=== PATIENT | female | born 1990 | race African-American/Black ===

== ENCOUNTER 2018-03-29 21:47 | Emergency (ER) | payer OTHER ==
[~2018-03-29] VITALS: Ht 162.6 cm; Wt 68.0 kg
[~2018-03-29 21:47] MED LIST: HYDROXYZINE50 MG PO; MINASTRIN 24 FE1 KIT PO; TRIAMCINOL0.1 %/453 TOP
[2018-03-30 00:46] VITALS: BP 118/85
--- NOTE | 2018-03-30 01:31 | ED HEAD/FACIAL INJ COMPLAINT ---
History of Present Illness General Chief Complaint: General Adult Stated Complaint: "HIT HEAD" Source: patient Exam Limitations: no limitations Vital Signs & Intake/Output Vital Signs & Intake/Output Vital Signs Date Time Temp Pulse Resp B/P B/P Pulse O2 O2 Flow FiO2 Mean Ox Delivery Rate 03/30 0046 98.7 88 18 118/85 99 Room Air 03/29 2206 98.7 81 18 129/87 99 Room Air ED Intake and Output 03/30 0000 03/29 1200 Intake Total Output Total Balance Patient 150 lb Weight Weight Reported by Patient Measurement Method Allergies Coded Allergies: MDX - PCN (penicillin) (PCN (PENICILLIN)) (HIVES 02/23/15) Reconcile Medications Hydroxyzine Hydrochloride (Hydroxyzine) 50 MG TAB 1 TAB PO Q6-8 PRN ITCH/RASH NORETHINDRONE-E.ESTRADIOL-IRON (Minastrin 24 Fe Chewable Tab) 1 MG-20 MCG (24)/ 75 MG (4) TAB.CHEW 1 TAB PO DAILY CONTROL (Reported) Triamcinolone Acetonide (Triamcinolone 0.1% Cream 453 Gm) 0.5 % CREAM..G. 1 ADAM TOP Q8H PRN ITCH Triage Note: PT TO ED C/O PAIN IN BACK OF HEAD AND DOWN LEFT SIDE OF NECK S/P INJURY DURING ROLLOER COASTER RIDE 11 HRS AGO. DENIES N/V. DID HAVE A PERIOD OF DIZZINESS AND WEAKNESS 9 HRS AGO. NOW HAS A HEADACHE. Triage Nurses Notes Reviewed? yes : No Patient currently breastfeeds: No HPI: Patient presents for evaluation of a possible head injury that occurred at about 11:00 this [place] Patient states she hit the back of her head on a roller coaster ride. She denies loss of consciousness but does admit to having a gradual onset of a headache. She states she kept going on the ride began feeling increasingly dizzy. In addition she felt somewhat sleepy during the day and slept on the ride back from the amusement park. Patient is also experiencing some upper neck stiffness. She denies any associated visual changes or vomiting. Past History Travel History Traveled to [place] past 21 day No Medical History Any Pertinent Medical History? see below for history EENT: NONE Cardiovascular: NONE Respiratory: NONE Gastrointestinal: NONE Hepatic: NONE Renal: NONE Musculoskeletal: NONE Psychiatric: NONE Endocrine: NONE Surgical History Surgical History: N Psychosocial History What is your primary language Bhutanese Tobacco Use: Never used ETOH Use: denies use Illicit Drug Use: denies illicit drug use Family History Hx Contributory? No Review of Systems Review of Systems Constitutional: Reports: no symptoms. EENTM: Reports: no symptoms. Respiratory: Reports: no symptoms. Cardiovascular: Reports: no symptoms. GI: Reports: no symptoms. Genitourinary: Reports: no symptoms. Musculoskeletal: Reports: see HPI. Skin: Reports: no symptoms. Neurological/Psychological: Reports: no symptoms. Hematologic/Endocrine: Reports: no symptoms. Immunologic/Allergic: Reports: no symptoms. All Other Systems: Reviewed and Negative Physical Exam Physical Exam General Appearance: SEE BELOW Cranial Nerves: SEE BELOW Comments: Gen.: Well-nourished, well-developed, no acute respiratory distress. Head: Normocephalic, atraumatic. Nontender. Eyes: Normal inspection bilaterally, PERRLA, EOMI Ears: Normal inspection bilaterally, no yang sign Nose: Normal inspection Throat/mouth : Moist mucosa Neck: Supple, full range of motion, no goiter, nontender Lungs: Quiet respirations Back: Normal range of motion Extremities: Normal range of motion grossly, no cyanosis clubbing or edema of the upper extremities Neurologic: Cranial nerves 2 through 12 intact, speech is clear, gait is stable Skin: warm and dry Psychiatric: Calm, cooperative, no apparent delusions or hallucinations Progress Differential Diagnosis: c-spine injury, facial fracture, skull fracture Plan of Care: Orders Procedure Date/time Status URINE 03/30 0001 Complete Laboratory Tests 03/30/18 0009: Urine Test NEGATIVE Comments: Patient recalled 3 objects with mild prompting. Patient spelled world backwards correctly. Patient able to count backwards from 100 by seven. Alexa declined imaging in the emergency department because of right availability. Possibility of mild concussion discussed. Departure Departure Disposition: HOME OR SELF CARE Condition: Stable Clinical Impression Primary Impression: Minor head trauma Secondary Impressions: Neck strain Qualifiers: Encounter type: initial encounter Qualified Code: S16.1XXA - Strain of muscle, fascia and tendon at neck level, initial encounter Referrals: Unknown (PCP/Family) Additional Instructions: [id number] ibuprofen or Tylenol as needed for headache pain or neck pain. Ice to any areas of swelling. Follow-up with your primary care physician on Saturday if not improving. Return to the emergency department if any concerns, sudden worsening or if he wished to have the imaging studies done as discussed. Thank you for choosing the [facility] Emergency Department for your care. It was a pleasure to serve you today. Elmer Iglesias M.D. [facility] Departure Forms: Customer Survey General Discharge Information
== END 2018-03-30 01:39 ==
LOC: ERH 21:47
DX: S09.90XA Unspecified injury of head, initial encounter (principal); W22.8XXA Striking against or struck by other objects, initial encounter; Y93.I1 Activity, roller coaster riding; Y92.831 Amusement park as the place of occurrence of the external cause
CPT/HCPCS: 81025

== ENCOUNTER 2018-04-08 18:08 | Emergency (ER) | payer OTHER ==
--- NOTE | 2018-04-08 20:01 | CT SCAN REPORT ---
EXAMINATION: CT HEAD WITHOUT CONTRAST CLINICAL INFORMATION: Head strike COMPARISON: 01/21/[address] TECHNIQUE: Contiguous axial imaging was performed from the skull base to vertex without intravenous administration of contrast. DLP: 689 mGy-cm FINDINGS: There is no evidence of acute intracranial hemorrhage or territorial infarction. No abnormal mass effect or midline shift is seen. Martinez to white matter differentiation is well preserved. No extra-axial fluid collections are identified. The ventricles are normal in size. There is no abnormal attenuation within the brain parenchyma. The osseous structures and soft tissues are normal. The mastoid air cells and visualized portions of the paranasal sinuses are well aerated. IMPRESSION: No acute intracranial pathology.
[2018-04-08] MEDS ORDERED: NAPROSYN500 M1 PO (21:41)
--- NOTE | 2018-04-08 21:42 | ED GENERAL ADULT ---
History of Present Illness General Chief Complaint: Facial or Head Injury Stated Complaint: HEAD INJURY 2 WKS AGO, REQUESTING CT SCAN Source: patient Exam Limitations: no limitations Vital Signs & Intake/Output Vital Signs & Intake/Output Vital Signs Date Time Temp Pulse Resp B/P B/P Pulse O2 O2 Flow FiO2 Mean Ox Delivery Rate 04/08 2152 97.8 82 18 138/81 99 Room Air 04/08 2023 97 Room Air 04/08 1812 97.2 80 16 141/97 97 Room Air Allergies Coded Allergies: MDX - PCN (penicillin) (PCN (PENICILLIN)) (HIVES 02/23/15) Reconcile Medications Hydroxyzine Hydrochloride (Hydroxyzine) 50 MG TAB 1 TAB PO Q6-8 PRN ITCH/RASH Naproxen (Naprosyn) 500 MG TABLET 1 TAB PO BID PRN headache/pain NORETHINDRONE-E.ESTRADIOL-IRON (Minastrin 24 Fe Chewable Tab) 1 MG-20 MCG (24)/ 75 MG (4) TAB.CHEW 1 TAB PO DAILY CONTROL (Reported) Triamcinolone Acetonide (Triamcinolone 0.1% Cream 453 Gm) 0.5 % CREAM..G. 1 ADAM TOP Q8H PRN ITCH Triage Note: PT TO ED REQUESTING HEAD/NECK CT SCAN AFTER SUSTAINING INJURY WHILE RIDING A ROLLER COASTER 2 WEEKS AGO AT [employer]. STATES WHEN SHE WAS ASCENDING ROLLER COAST, HER HEAD SNAPPED BACK AND HIT A HARD PLASTIC PIECE. REPORTS CONTINUED POSTERIOR HEAD PAIN/PRESSURE AND FATIGUE. Triage Nurses Notes Reviewed? yes Onset: Gradual Duration: day(s): Timing: constant : No Patient currently breastfeeds: No HPI: 27-year-old otherwise healthy female presenting with headaches and lightheadedness 1.5 weeks. Patient reports that she was on a roller coaster and during the ride the back of her head firmly struck a plastic piece on the back of her C. Denies LOC. Is not on any anticoagulation. She had gradual onset of posterior headaches after. Denies any associated nausea, vomiting, visual changes. She was seen and evaluated in the emergency department after the incident, was offered CT head but declined at that time. She has had persistent headaches and lightheadedness since, and returns to the emergency department as she would like to obtain a CT of her head at this time. (Gemma Ireland) Past History Travel History Traveled to [place] past 21 day No Medical History Any Pertinent Medical History? none EENT: NONE Cardiovascular: NONE Respiratory: NONE Gastrointestinal: NONE Hepatic: NONE Renal: NONE Musculoskeletal: NONE Psychiatric: NONE Endocrine: NONE Surgical History Surgical History: N Psychosocial History What is your primary language Ugandan Tobacco Use: Never used Family History Hx Contributory? No (Gemma Ireland) Review of Systems Review of Systems Constitutional: Reports: no symptoms. EENTM: Reports: no symptoms. Respiratory: Reports: no symptoms. Cardiovascular: Reports: no symptoms. GI: Reports: no symptoms. Genitourinary: Reports: no symptoms. Musculoskeletal: Reports: no symptoms. Skin: Reports: no symptoms. Neurological/Psychological: Reports: see HPI. Hematologic/Endocrine: Reports: no symptoms. Immunologic/Allergic: Reports: no symptoms. All Other Systems: Reviewed and Negative (Gemma Ireland) Physical Exam Physical Exam General Appearance: well developed/nourished, no apparent distress, alert, awake , comfortable Comments: Gen.: Well-nourished, well-developed, no acute distress. Head: Normocephalic, atraumatic, nontender Eyes: Normal inspection bilaterally Ears: Normal inspection bilaterally Nose: Normal inspection Neck: Normal inspection, no midline tenderness to palpation, unrestricted C- spine range of motion Lungs: clear to auscultation bilaterally, normnal breath sounds Heart: regular rate and rhythm Abdomen: soft and non-tender Extremities: Normal inspection Neurologic: alert and oriented x3, steady gait, cranial nerves II through XII intact, sensation intact, motor strength 5 out of 5, reflexes 2+, cerebellar function intact Skin: warm and dry Psychiatric: Normal mood and affect, no apparent delusions or hallucinations, behavior appropriate Core Measures ACS in differential dx? No CVA/TIA Diagnosis: No Sepsis Present: No Sepsis Focused Exam Completed? No (Gemma Ireland) Progress Differential Diagnoses I considered the following diagnoses in my evaluation of the patient: [ Concussion versus ICH versus cranial fracture] Plan of Care: Orders Procedure Date/time Status URINE 04/08 1824 Complete Laboratory Tests 04/08/18 1835: Urine Test NEGATIVE CT head unremarkable. Patient reports complete resolution of her symptoms after IV fluids, Reglan, and Toradol. Likely with concussion secondary to her previous head strike. Will give Rx naproxen. Counseled on supportive care. She will follow-up with her PMD for reevaluation. Given neurology follow-up in the event that her headache/concussion does not improve. Given strict return precautions. Initial ED EKG: none (Gemma Ireland) Departure Departure Disposition: HOME OR SELF CARE Condition: Stable Clinical Impression Primary Impression: Headache Secondary Impressions: Closed head injury Referrals: Delbert DODD,Delbert (PCP/Family) Stephani Wylie MD Additional Instructions: Use naproxen as needed for headaches. Maintain adequate fluid intake to help alleviate lightheadedness. Follow-up with your primary care doctor for further evaluation. Return to the emergency department for any new or worsening symptoms. Departure Forms: Customer Survey General Discharge Information Prescriptions: Current Visit Scripts Naproxen (Naprosyn) 1 TAB PO BID PRN headache/pain #60 TAB (Gemma Ireland) PA/TANK TRUCK ENGINE MECHANIC Co-Sign Statement Statement: ED Attending supervision documentation- [] I saw and evaluated the patient. I have also reviewed all the pertinent lab results and diagnostic results. I agree with the findings and the plan of care as documented in the PA's/TANK TRUCK ENGINE MECHANIC's documentation. [x] I have reviewed the ED Record and agree with the PA's/TANK TRUCK ENGINE MECHANIC's documentation. [] Additions or exceptions (if any) to the PAs/TANK TRUCK ENGINE MECHANIC's note and plan are summarized below: [] (Elmer Mcnair DO) Critical Care Note Critical Care Note Critical Care Time: non-applicable (Gemma Ireland)
[2018-04-08 21:52] VITALS: BP 138/81
== END 2018-04-08 21:52 ==
LOC: ERH 18:08
DX: S09.90XA Unspecified injury of head, initial encounter (principal); W22.8XXA Striking against or struck by other objects, initial encounter; Y93.I1 Activity, roller coaster riding; Y92.831 Amusement park as the place of occurrence of the external cause
CPT/HCPCS: 81025; 96374; J1885; J2765